=== PATIENT | male | born 1950 | race Caucasian/White ===

== ENCOUNTER 2016-10-20 16:08 | Emergency (ER) | payer OTHER, MEDICARE ==
[2016-10-20 16:23] VITALS: BP 125/82; PULSE 52; RESP 18; TEMP 98; O2SAT 97
--- NOTE | 2016-10-20 17:14 | UCPHY ---
H & P Time Seen by Provider: 10/20/16 16:37 Patient Type: Established HPI/ROS: This patient complains of a 7 day history of a hacking cough the burning sensation in his chest feels like prior episodes of bronchitis. He notes that the symptoms worsen with exertion in hears a wheezing sound in his chest with deep breath at times. Occasionally has some difficulty sleeping due to the cough and he has been taking guaifenesin [id number] without significant change in his symptoms. No other exacerbating or alleviating factors are noted. ROS: Constitutional: No high fevers or chills. No significant fatigue. HEENT : Mild nasal congestion. No sinus pain. No sore throat. Pulmonary: No pleuritic pain. No respiratory distress. Cardiovascular: No leg swelling or calf pain. GI: No symptoms. 10 point ROS is otherwise negative. Smoking Status: Never smoked Physical Exam: Physical Exam Vital signs are normal. General: No acute distress HEENT: Nose: Clear discharge bilaterally. No sinus tenderness to percussion. Ears: External canals and tympanic membranes are clear with no erythema or abnormal findings bilaterally. Oropharynx: No erythema or exudates. No dysphonia. No drooling or stridor. Eyes: Pupils equal and react to light. Extraocular motions are intact. Lungs: Mild expiratory wheeze bilaterally with faint rhonchi. No rales. Cardiac: Regular rate and rhythm with no murmur gallop or rub Skin: No rash or pallor. Neuro: Alert with no focal deficits noted. Initial differential diagnosis: Viral versus bacterial bronchitis, URI with cough, doubt pneumonia Constitutional: Initial Vital Signs Temperature (C) 36.6 C 10/20/16 16:21 Heart Rate 52 L 10/20/16 16:21 Respiratory Rate 18 10/20/16 16:21 Blood Pressure 125/82 H 10/20/16 16:21 O2 Sat (%) 97 10/20/16 16:21 O2 Delivery Mode Room Air Allergies/Adverse Reactions: No Allergies [NKDA] Allergy (Verified 05/16/09 15:44) Home Medications: Medication Instructions Recorded Acyclovir 01/17/16 Herbals/Supplements -Info Only 07/01/16 Albuterol Hfa Anes Only [Proair 2 puffs IH Q4 PRN #1 mdi 10/20/16 Hfa Icu (*)] Azithromycin [Zithromax] 250 mg PO DAILY #6 tab 10/20/16 MDM/Departure - MDM ED Course/Re-evaluation: This patient appears clinically well and findings are most consistent with bronchitis. I counseled him regarding this - Depart Disposition: Home, Routine, Self-Care Clinical Impression: Acute bronchitis Qualifiers: Bronchitis organism: unspecified organism Qualified Code(s): J20.9 - Acute bronchitis, unspecified Condition: Good Instructions: Acute Bronchitis (ED) Additional Instructions: Diagnosis: Acute bronchitis Plan: Humidifier Zithromax antibiotic Albuterol inhaler as prescribed Return for any significant worsening despite the treatment plan. Prescriptions: Albuterol Hfa Anes Only [Proair Hfa Icu (*)] 2 puffs IH Q4 PRN #1 mdi PRN Reason: Wheezing Azithromycin [Zithromax] 250 mg PO DAILY #6 tab Referrals: NONE *PRIMARY CARE P,. [Primary Care Provider] - As per Instructions - PQRS PQRS Measurement: 134: Depression screening and followup, PRIME MD-PHQ2 (12 years and older) Over the last 2 weeks, how often have you been bothered by any of the following problems? 1. Feeling down, depressed, or hopeless? 2. Little interest or pleasure in doing things? Patient answered no to both 1 and 2 130: Documentation of medications. Reviewed all patient medications, doses, route and frequency. 226: Do you smoke? [No.] 47: 65 and older: Advanced care planning. Patient designates surrogate decision maker as spouse 51: 18 years old and older with diagnosis of COPD, spirometry performance. NA 52: 18 years old and older with COPD and symptoms of COPD or FEV1<60% predicted prescribed a B Agonist. NA
== END 2016-10-20 17:21 | disposition home or self-care (01) ==
LOC: CED 16:08
DX: J20.9 Acute bronchitis, unspecified (principal)
CPT/HCPCS: 99214-PO; G0463-PO